=== PATIENT | male | born 1985 ===

== ENCOUNTER → 2018-10-08 20:37 | Outpatient (REF) | payer OTHER, MEDICAID, SELFPAY ==
[2018-10-09 11:03] LABS: Urine Amphetamines Negative (Negative); Urine Barbiturates Negative (Negative); Urine Benzodiazepines Negative (Negative); Urine Cocaine Negative (Negative); Urine MDMA Negative (Negative); Urine Methadone Negative (Negative); Urine Methamphetamines Negative (Negative); Urine Morphine/Opi cutoff 2000 Negative (Negative); Urine Oxycodone Negative (Negative); Urine Phencyclidine Negative (Negative); Urine Tetrahydrocannabinol Positive (Negative); Urine Tricyclic Antidepressant Negative (Negative)
[2018-10-12 10:17] LABS: Hepatitis A Antibody IgM NONREACTIVE (NONREACTIVE); Hepatitis B Core Antibody IgM NONREACTIVE (NONREACTIVE); Hepatitis B Surface Antigen NONREACTIVE (NONREACTIVE); Hepatitis C Antibody NONREACTIVE
[2018-10-12 19:58] LABS: HIV Ag/Ab, 4th Gen Nonreactive (Nonreactive)
[2018-10-13 08:40] LABS: Syphilis AB Cascading Reflex NEGATIVE (Negative)
[2018-10-13 12:42] LABS: HSV 1 IgM Screen Positive (Negative); HSV 2 IgM Screen Positive (Negative)
[2018-10-13 13:54] LABS: Herpes Simplex Virus 1 IGG AB 2.43 index (< 0.90)
== END ==
LOC: LAB 20:37
PROVIDERS: Visit Provider Naturopath
DX: Z11.3 Encounter for screening for infections with a predominantly sexual mode of transmission (principal); Z02.83 Encounter for blood-alcohol and blood-drug test
CPT/HCPCS: 36415; 80074; 80305; 80321; 86694; 86695; 86703; 86780; 87491; 87591